=== PATIENT | male | born 1995 | race Caucasian/White ===

== ENCOUNTER 2017-09-30 10:59 | Day surgery (SDC) | payer OTHER ==
[2017-09-30] MEDS ORDERED: Lidocaine 2% w/Epinephrine 1:200K 20 ML VIAL ONE (11:41)
[2017-09-30] MEDS ORDERED: Bupivacaine 0.25% HCL 30 ML VIAL ONE (11:41)
[2017-09-30] MEDS ORDERED: Ondansetron HCl/PF 4 MG/2 ML Vial ONE ×2 (11:58→13:49)
[2017-09-30] MEDS ORDERED: Midazolam HCl 2 mg/2 ml Vial ONE (11:58)
[2017-09-30] MEDS ORDERED: Fentanyl 100 MCG/2 ML VIAL ONE (11:58)
[2017-09-30] MEDS ORDERED: Famotidine/PF 20 mg/2ml Vial ONE (11:59)
--- NOTE | 2017-09-30 13:36 | HP ---
CHIEF COMPLAINT: Right lower quadrant pain. HISTORY OF PRESENT ILLNESS: This is a 22-year-old male who presents with a history of pain in his ri ght lower quadrant since 4:00 a.m. this morning that awoke him from sleep, associated with nausea, no vomiting, no fever or chills. He never had pain like this before. Denies any history of inflammato ry bowel disease. PAST MEDICAL HISTORY: He denies. PAST SURGICAL HISTORY: [place] teeth. MEDICINES TAKEN DAILY: None. ALLERGIES: No known drug allergies. SOCIAL HISTORY: No smoking, alcohol or other drugs. He is a student. REVIEW OF SYSTEMS: Ten-system review of systems otherwise negative unless described above. PHYSICAL EXAMINATION: HEENT: Sclerae are anicteric. Oropharynx is clear. NECK: No lymphadenopathy. CHEST: Clear. HEART: Regular rate and rhythm. ABDOMEN: Soft, tender right lower quadrant with localized guarding, without rebound. No abdominal o r inguinal hernias. EXTREMITIES: No ischemia or edema to extremities. LABORATORY AND X-RAY FINDINGS: White blood cell count is 11. CT scan shows acute appendicitis. ASSESSMENT: Acute appendicitis. PLAN: Laparoscopic appendectomy. Risks, benefits and alternatives discussed. He gives consent. We will do this today.
--- NOTE | 2017-09-30 13:37 | OP ---
DATE OF PROCEDURE: 09/30/2017 PREOPERATIVE DIAGNOSIS: Acute appendicitis. POSTOPERATIVE DIAGNOSIS: Acute appendicitis. PROCEDURE: Laparoscopic appendectomy. SURGEON: Devyn Vang M.D. ANESTHESIA: General. ESTIMATED BLOOD LOSS: Minimal. COMPLICATIONS: None. SPECIMEN: Appendix. FINDINGS: Appendicitis. TECHNIQUE: The patient was taken to the operating room and placed supine on the table. After genera l anesthetic was obtained, the Quintana was placed. The abdomen was shaved, prepped and draped in a carla rile fashion. Curved incision made below the umbilicus. Cautery was used to dissect down to and sco re the fascia. Abdominal cavity entered bluntly using a Rachna clamp. Holding stitch of PDS was plac ed on each side of the fascia. Mane trocar was placed. High-flow pneumoperitoneum was obtained. A suprapubic 5-mm port and a left lower quadrant 5-mm port were placed under direct visualization. T he cecum was rolled over to reveal acute appendicitis. A small window was made at the base of the ap pendix in the mesoappendix. Laparoscopic stapler was fired across the base of the appendix. A reloa d was fired across the mesoappendix. Appendix placed in an Endo catch bag and brought out through th e Raffaele. All port sites were infiltrated using local anesthetic. No bleeding in the right lower qu adrant. No damage to any intraabdominal structures. The right lower quadrant and pelvis was irrigat ed using sterile solution. All ports were removed under camera visualization without bleeding and pn eumoperitoneum was let down. PDS was used to close the fascial defect below the umbilicus. All inci sions were irrigated and closed using 4-0 Monocryl and Dermabond. The patient was en route to recove ry in stable condition. All instrument counts, needle counts, and lap counts were correct.
[2017-09-30] MEDS ORDERED: Dexamethasone 20 MG/5 ML VIAL ONE (13:49)
[2017-09-30] MEDS ORDERED: Glycopyrrolate 0.2 MG/ML 5 ML SYRINGE ONE (13:49)
[2017-09-30] MEDS ORDERED: Succinylcholine Chloride 20 MG/ML 10 ml SYRINGE FS ONE (13:49)
[2017-09-30] MEDS ORDERED: PROPOFOL 200 MG/20 ML VIAL ONE (13:49)
[2017-09-30] MEDS ORDERED: Lidocaine 1% PF 5 ML VIAL ONE (13:49)
[2017-09-30] MEDS ORDERED: Ketorolac Tromethamine 30 MG/ML VIAL ONE (13:49)
== END 2017-09-30 15:12 | disposition home or self-care (01) ==
LOC: ERS 10:59 → SDC 11:47
PROVIDERS: ATTEND Surgery
PROC: 0DTJ4ZZ Resection of Appendix, Percutaneous Endoscopic Approach (ICD-10-PCS; principal; 2017-09-30)
DX: K35.80 Unspecified acute appendicitis (principal)
CPT/HCPCS: 88304; 99285; J0131; J1100; J1885; J2001; J2250; J2405; J2704; J3010; S0020; S0028